=== PATIENT | female | born 1975 | race Caucasian/White ===

== ENCOUNTER 2017-05-26 22:08 | Inpatient (IN) | payer OTHER ==
[2017-05-26] MEDS ORDERED: SODIUM CHLORIDE 0.9% 1,000 ML IV STA (22:33)
[2017-05-26] MEDS ORDERED: ONDANSETRON 4 MG/2 ML VIAL IVP STA (22:33)
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
[2017-05-26 23:21] LABS: Anisocytosis Slight; Basophils # (A) 0.1 k/uL (0-0.2); Basophils % (A) 0 %; CH 22.6; CHCM 30.8; Eosinophils % (A) 0 %; HDW 3.33; HGB 10.8 gm/dL (11.4-16.0); Hypochromasia Marked; Luc # (Auto) 0.24; Luc % (Auto) 1; Lymphocytes # (A) 1.4 k/uL (1.0-4.8); Lymphocytes % (A) 7 %; MCH 22.8 pg (25.0-35.0); MCHC 30.8 g/dL (31.0-37.0); MCV 73.9 fL (80.0-100.0); Mean Platelet Volume 6.4; Microcytosis Moderate; Monocytes # (A) 0.7 k/uL (0-1.0); Monocytes % (A) 3 %; Neutrophils # (A) 19.1 k/uL (1.3-7.7); Neutrophils % (A) 89 %; RBC 4.73 m/uL (3.80-5.40); RDW 16.9 % (11.5-15.5); WBC 21.5 k/uL (3.8-10.6); WBC (Perox) 21.04
[2017-05-26 23:22] LABS: INR 1.3 (<1.2); Partial Thromboplastin Time 30.1 sec (22.0-30.0); Prothrombin Time 12.4 sec (9.0-12.0)
[2017-05-26 23:25] LABS: ALT 39 U/L (9-52); AST 18 U/L (14-36); Alkaline Phosphatase 161 U/L (38-126); Amylase 46 U/L (30-110); Anion Gap 15 mmol/L; Blood Urea Nitrogen 11 mg/dL (7-17); Calcium 9.1 mg/dL (8.4-10.2); Carbon Dioxide 25 mmol/L (22-30); Chloride 98 mmol/L (98-107); Glucose 120 mg/dL (74-99); Non-African American GFR(MDRD) >60 (>60 ml/min/1.73 sqM); Potassium 3.2 mmol/L (3.5-5.1); Sodium 138 mmol/L (137-145); Total Bilirubin 0.7 mg/dL (0.2-1.3); Total Protein 6.8 g/dL (6.3-8.2)
[2017-05-26 23:37] LABS: Creatine Kinase 33 U/L (30-135)
[2017-05-26 23:49] LABS: Creatine Kinase MB <0.2 ng/mL (0.0-2.4); Troponin I <0.012 ng/mL (0.000-0.034)
--- NOTE | 2017-05-27 00:03 | XR ---
EXAM: XR Chest, 2 Views CLINICAL HISTORY: Reason: abdominal pain TECHNIQUE: Frontal and lateral views of the chest. COMPARISON: No relevant prior studies available. FINDINGS: Lungs: Increased interstitial opacities throughout both lungs. There are multiple ill-defined focal consolidative airspace opacities identified in the mid and lower lung zones bilaterally with surrounding infiltrative pulmonary opacity. Pleural space: No evidence of pneumothorax or pleural effusion. Heart: Heart size is within normal limits. Mediastinum: Rounded retrocardiac opacity raising possibility of small hiatal hernia. Mediastinal structures are otherwise unremarkable. Bones/joints: Imaged bony thorax is unremarkable. IMPRESSION: Diffusely increased interstitial opacities with multifocal ill-defined focal consolidative and infiltrative pulmonary opacities throughout both lungs. Findings raise possibility of multifocal pneumonia. Pulmonary metastatic disease would be a differential possibility. Clinical correlation and short-term radiographic or CT follow-up recommended. Possible small hiatal hernia. [employer] 05/27/17 00:12 Verify Receipt Verified receipt with KIRSTEN Tavarez, report given to Dr. Reis on 05/27 00:11 (-04:00)
--- NOTE | 2017-05-27 00:07 | XR ---
EXAM: XR Abdomen, 1 View CLINICAL HISTORY: Reason: abdominal pain TECHNIQUE: Frontal supine view of the abdomen/pelvis. COMPARISON: No relevant prior studies available. FINDINGS: Intraperitoneal space: No evidence of pneumoperitoneum on erect chest radiograph the same date. Gastrointestinal tract: Bowel gas pattern is unremarkable. No evidence of bowel obstruction. Organs: No radiopaque renal calculi. Small calcifications left lower pelvis suggesting calcified phleboliths. Bones/joints: Unremarkable. IMPRESSION: No radiographic evidence of acute abdominal disease or bowel obstruction.
[2017-05-27 01:02] LABS: Appearance,Urine Cloudy (Clear); Bacteria,Urine Rare /hpf; Bilirubin,Urine Negative (Negative); Glucose,Urine (UA) Negative (Negative); Ketones,Urine Negative (Negative); Leukocyte Esterase,Urine Negative (Negative); Mucus,Urine Few /hpf; Nitrite,Urine Negative (Negative); PH, Urine 5.5 (5.0-8.0); Particle Count 22139; Protein,Urine 1+ (Negative); RBC,Urine 2 /hpf (0-5); Specific Gravity,Urine 1.018 (1.001-1.035); Squamous Epithelial Cell,Urine 3 /hpf (0-4); UA Billing (MACRO vs. MICRO) MICRO; Urobilinogen,Urine <2.0 mg/dL (<2.0); WBC,Urine 4 /hpf (0-5)
[2017-05-27] MEDS ORDERED: PNEUMONIA PROTOCOL UTILIZED 1 EACH MISC PO PRN (01:04)
[2017-05-27] MEDS ORDERED: LEVOFLOXACIN 750MG-D5W PMX 750 MG in DEXTROSE/WATER 1 150ML.BAG IVPB STA (01:18)
[2017-05-27] MEDS ORDERED: PANTOPRAZOLE 40 MG/10 ML VIAL IVP STA (01:19)
[2017-05-27] MEDS ORDERED: ACETAMINOPHEN TAB 325 MG TAB PO PRN (01:52)
[2017-05-27] MEDS ORDERED: IPRATROPIUM-ALBUTEROL 3 ML NEB INHALATION PRN (02:45)
[2017-05-27] MEDS ORDERED: ONDANSETRON 4 MG/2 ML VIAL IVP PRN (02:46)
[2017-05-27] MEDS ORDERED: HYDROcodone/APAP 5-325MG 1 EACH TAB PO PRN (03:30)
[2017-05-27] MEDS ORDERED: HYDROmorphone 1 MG/ML 1 ML SYRINGE IVP PRN (03:31)
[2017-05-27] MEDS: GABAPENTIN 400 MG CAP PO SCH ×5 (03:47→22:01)
[2017-05-27] MEDS: SODIUM CHLORIDE 0.9% 1,000 ML IV SCH (03:47)
[2017-05-27] MEDS: IPRATROPIUM-ALBUTEROL 3 ML NEB INHALATION SCH ×4 (07:35→18:42)
[2017-05-27] MEDS ORDERED: ALPRAZolam 0.5 MG TAB PO SCH (09:00)
[2017-05-27] MEDS ORDERED: ALPRAZolam 0.5 MG TAB PO PRN (11:59)
[2017-05-27] MEDS ORDERED: traMADol 50 MG TAB PO PRN (12:12)
[2017-05-27] MEDS: PANTOPRAZOLE 40 MG/10 ML VIAL IVP SCH (12:55)
[2017-05-27] MEDS ORDERED: traMADol 50 MG TAB PO SCH (13:00)
[2017-05-27 13:14] LABS: Anisocytosis Slight; Basophils % (A) 0 %; CH 22.6; CHCM 30.2; Eosinophils # (A) 0.1 k/uL (0-0.7); Eosinophils % (A) 0 %; HCT 29.5 % (34.0-46.0); HDW 3.32; Hypochromasia Marked; Luc # (Auto) 0.26; Luc % (Auto) 1; Lymphocytes # (A) 1.1 k/uL (1.0-4.8); Lymphocytes % (A) 5 %; MCH 22.9 pg (25.0-35.0); MCHC 30.3 g/dL (31.0-37.0); MCV 75.5 fL (80.0-100.0); Mean Platelet Volume 6.5; Microcytosis Slight; Monocytes # (A) 0.5 k/uL (0-1.0); Monocytes % (A) 3 %; Neutrophils # (A) 18.6 k/uL (1.3-7.7); Neutrophils % (A) 90 %; RBC 3.91 m/uL (3.80-5.40); RDW 16.8 % (11.5-15.5); WBC 20.6 k/uL (3.8-10.6); WBC (Perox) 20.63
[2017-05-27 13:15] LABS: HGB 8.9 gm/dL (11.4-16.0)
[2017-05-27 13:28] LABS: ALT 45 U/L (9-52); AST 22 U/L (14-36); Alkaline Phosphatase 142 U/L (38-126); Anion Gap 11 mmol/L; Blood Urea Nitrogen 9 mg/dL (7-17); Calcium 8.7 mg/dL (8.4-10.2); Carbon Dioxide 26 mmol/L (22-30); Chloride 100 mmol/L (98-107); Glucose 93 mg/dL (74-99); Non-African American GFR(MDRD) >60 (>60 ml/min/1.73 sqM); Potassium 3.1 mmol/L (3.5-5.1); Sodium 137 mmol/L (137-145); Total Bilirubin 0.4 mg/dL (0.2-1.3)
[2017-05-27 14:00] LABS: Hepatitis B Surface Ag Index 0.05
[2017-05-27 14:06] LABS: Hepatitis B Core IgM Index 0.01
[2017-05-27 14:18] LABS: Hepatitis C Virus IgG Ab Negative (Negative); Hepatitis C Virus IgG Index 0.19
[2017-05-27] MEDS ORDERED: Potassium Replacement Protocol 1 EACH MISC MISCELLANE PRN (14:28)
--- NOTE | 2017-05-27 14:53 | CONS ---
DATE OF SERVICE: 05/27/2017 REQUESTING PHYSICIAN: Dr. Campos. REASON FOR CONSULTATION: Nausea, vomiting, diarrhea and questionable melena. HISTORY OF PRESENT ILLNESS: A 42-year-old pleasant lady who was admitted to the hospital when she presented to the Emergency Room last night with acute onset of abdominal pain for the last 2 days' duration associated with nausea, vomiting and diarrhea. She threw up at least 10 times and there was questionable dark-colored emesis. She continued to have progressive diarrhea with bowel movements anywhere from 10 to 15 a day which improved to water in consistency with black-colored stools. She denies taking any definitive prep due to small lipping. Continued to progress worse, the nausea, vomiting also got worse and at the same time she started having some shortness of breath and coughing for the last 2 weeks. Came into the Emergency Room and was admitted to the hospital for further evaluation. This morning, she states that she continues to have both the nausea but no emesis. She had about 3 dark green- colored stools since being in the hospital. She has diffuse abdominal pain, mostly in the lower abdomen. No fever, chills or night sweats. Never had similar symptoms in the past. No recent antibiotic use. No recent travel history. Her past medical history is significant for history of asthma, COPD, history of DVT in the past, GERD, osteoarthritis, migraine, kidney stones. PAST SURGICAL HISTORY: , cholecystectomy, hysterectomy. Medications at home include Spiriva, Xanax, Prozac, Lasix, Neurontin, Protonix, Ultram. Allergies to AUGMENTIN, IV DYE, TORADOL, COMPAZINE. SOCIAL HISTORY: Chronic smoker, no alcohol use. FAMILY HISTORY: Mother had some non-Hodgkin's lymphoma and father had coronary artery disease and renal disease. REVIEW OF SYSTEMS: CARDIOPULMONARY: No chest pain. She does complain of shortness of breath but no chest pain. NEUROLOGY: Unremarkable. PSYCHIATRY: History of anxiety, depression. ENT: Unremarkable. Vision unremarkable. CONSTITUTIONAL: No recent weight loss, no palpitations, night sweats. GI: As mentioned above. MUSCULOSKELETAL: Chronic back pain. HEMATOLOGY: Unremarkable. ENDOCRINE: Unremarkable. On physical examination, she appears comfortable, in no apparent distress. Vital signs are stable. Blood pressure is 93/57, pulse 104, temperature 97 degrees. HEENT examination unremarkable. Conjunctivae are pink, sclerae nonicteric. Oral cavity no lesions. NECK: No JVD or lymph node enlargement. Chest was clear to auscultation. HEART: Regular rate and rhythm. ABDOMEN: Soft, diffusely tender, but was nondistended. Bowel sounds are positive, no organomegaly. EXTREMITIES: No pedal edema. SKIN: No rashes. NEURO: She is alert and oriented x3. No focal deficits. She did have a chest x-ray done in the emergency room yesterday that showed diffuse increase interstitial opacities with multifocal ill-defined focal consolidative infiltrative pulmonary opacities throughout both the lungs. Possibility of multifocal pneumonia was suggested by the radiologist. Labs done at the time of admission to the hospital: WBC is 21.5, hemoglobin 10.8, platelets are normal. PT 12.4, INR 1.3, AST, ALT, T-bili and alk phos are within normal limits. Amylase and lipase are normal. C-diff toxin was negative. Stool for occult blood was positive. IMPRESSION: 1. This is as patient who presented to the hospital with acute onset of nausea , vomiting, diarrhea with some black-colored stool and questionable coffee- ground emesis for the last 2 days' duration. Symptoms are acute onset and most likely we are dealing with infectious diarrhea at the present time. Since being in the hospital though emesis has resolved but she continues to have persistent diarrhea and though nursing staff who witness the stool said it was dark green in color. 2. Bilateral pneumonia/leukocytosis, presently ( ) on antibiotics. RECOMMENDATIONS: 1. Will obtain stool studies. 2. Start her on clear liquid diet. 3. Repeat CBC in the morning. 4. At this time, I have no plans for any endoscopic intervention unless she has active ongoing bleeding. The plan was discussed with the patient, she is agreeable to it. She will be continued on IV Protonix as well as antiemetics and will follow her closely during the hospital setting given this consultation. PARTHA
[2017-05-27] MEDS: POTASSIUM CHLORIDE ER 20 MEQ TAB.ER PO SCH ×2 (15:32→17:57)
--- NOTE | 2017-05-27 16:05 | P.HPIM ---
History of Present Illness 42-year-old female came in with complaints of shortness of breath and epigastric abdominal pain, along with diarrhea multiple episodes a day although has creatinine is not bad. And patient has multiple bowel movements. Patient 2 days ago has couple episodes of blood in the stools and questionable history of hematemesis. Gastric body evaluate the patient patient is on Protonix at this point of time patient is found to have diffuse infiltrate in bilateral chest x-ray bilaterally. Patient does have leukocytosis denied any fever did complain of chills. Patient does have couple areas in the right middle and lower lobe of possibility for consolidation. Because of which I'm consulted pulmonary. Clostridium difficile testing was negative. And gastroneurology recommended stool studies for possibility of infectious diarrhea. Patient is on IV fluids and discontinued Lasix at this point of time. And patient does not have any elevated JVD. I did not do a hepatitis panel which is negative I did order HIV testing as well which is still pending. From obtaining urinary Legionella antigen and mycoplasma IgM antibody testing for possibility of atypical pneumonia and patient was started on levofloxacin. He was comparing of cough without any significant sputum production patient has epigastric abdominal burning sensation her lipase is negative patient may have gastritis or peptic ulcer disease as well along with this atypical pneumonia. Review of Systems REVIEW OF SYSTEMS: CONSTITUTIONAL: No fever, no malaise, no fatigue. HEENT: No recent visual problems or hearing problems. Denied any sore throat. CARDIOVASCULAR: No chest pain, orthopnea, PND, no palpitations, no syncope. PULMONARY: As mentioned in HPI GASTROINTESTINAL: As mentioned in HPI NEUROLOGICAL: No headaches, no weakness, no numbness. HEMATOLOGICAL: Denies any bleeding or petechiae. GENITOURINARY: Denies any burning micturition, frequency, or urgency. MUSCULOSKELETAL/RHEUMATOLOGICAL: Denies any joint pain, swelling, or any muscle pain. ENDOCRINE: Denies any polyuria or polydipsia. The rest of the 14-point review of systems is negative. Past Medical History Past Medical History: Asthma, COPD, Deep Vein Thrombosis (DVT), GERD/Reflux, GI Bleed, Osteoarthritis (OA), Pneumonia, Seizure Disorder, Syncope Additional Past Medical History / Comment(s): TACHYCARDIA, MURMUR, TIA(WHEN ), MIGRAINE, PSORIASES, DIVERTICULITIS, pancreatitis, 2009 BIT BY BROWN RECLUSE ENDED UP WITH A WOUND THAT WAS POSITIVE FOR MRSA), KIDNEY STONES. BORN WITH SMALL ESOPHAGUS History of Any Multi-Drug Resistant Organisms: MRSA Date of last positivie culture/infection: 2008 MDRO Source:: WOUND Past Surgical History: Section, Cholecystectomy, Tubal Ligation Additional Past Surgical History / Comment(s): X3 C- SECTIONS Additional Past Anesthesia/Blood Transfusion Reaction / Comment(s): TAKES EXTRA TO KNOCK HER OUT. Past Psychological History: Anxiety, Bipolar, Depression, Panic Disorder, PTSD Smoking Status: Current every day smoker Past Alcohol Use History: None Reported Additional Past Alcohol Use History / Comment(s): STARTED SMOKING AT 15 SMOKES 1 -2 PPD Past Drug Use History: None Reported - Past Family History Father Family Medical History: Coronary Artery Disease (CAD), Renal Disease Additional Family Medical History / Comment(s): QUAD CABG Mother Family Medical History: Cancer Additional Family Medical History / Comment(s): NON HODGKINS LYMPHOMA Medications and Allergies Home Medications Medication Instructions Recorded Confirmed Type Tiotropium [place] [Spiriva] 1 cap INHALATION RT-DAILY 04/09/15 05/26/17 History ALPRAZolam [Xanax] 1 mg PO TID 05/26/17 05/26/17 History FLUoxetine HCL [PROzac] 60 mg PO HS 05/26/17 05/26/17 History Furosemide [Lasix] 20 mg PO BID 05/26/17 05/26/17 History Gabapentin [Neurontin] 800 mg PO QID 05/26/17 05/26/17 History Pantoprazole Sodium [Protonix] 40 mg PO BID 05/26/17 05/26/17 History hydrOXYzine PAMOATE 50 mg PO QID 05/26/17 05/26/17 History predniSONE 10 mg PO DAILY 05/26/17 05/26/17 History traMADol HCl [Ultram] 50 mg PO BID 05/26/17 05/26/17 History Allergies Allergy/AdvReac Type Severity Reaction Status Date / Time amoxicillin trihydrate Allergy Severe Anaphylaxis Verified 05/26/17 22:17 [From Augmentin] Iodinated Contrast- Oral and Allergy Severe Anaphylaxis Verified 05/26/17 22:17 IV Dye [Iodinated Contrast Media - IV Dye] ketorolac tromethamine Allergy Severe Rash/Hives Verified 05/26/17 22:17 [From Toradol] potassium clavulanate Allergy Severe Anaphylaxis Verified 05/26/17 22:17 [From Augmentin] prochlorperazine edisylate Allergy Severe Rash/Hives Verified 05/26/17 22:17 [From Compazine] prochlorperazine maleate Allergy Severe Rash/Hives Verified 05/26/17 22:17 [From Compazine] venom-honey bee Allergy Severe Anaphylaxis Verified 05/26/17 22:17 [bee venom (honey bee)] contrast Allergy Anaphylaxis Uncoded 05/26/17 22:17 Physical Exam Vitals: Vital Signs Temp Pulse Pulse Resp BP BP Pulse Ox 05/27/17 15:47 100 05/27/17 15:43 94 L 05/27/17 15:40 100 05/27/17 11:58 101 H 05/27/17 11:50 105 H 05/27/17 11:18 92 L 05/27/17 08:32 97 102/61 05/27/17 08:23 93/57 05/27/17 08:07 104 H 05/27/17 07:35 104 H 05/27/17 07:00 97.9 F 95 16 79/47 90 L 05/27/17 02:35 98.4 F 106 H 16 102/54 94 L 05/27/17 01:54 101.3 F H 102 H 18 110/82 96 05/26/17 23:55 99 18 103/57 97 05/26/17 22:13 98.1 F 105 H 20 106/56 93 L Intake and Output 05/27/17 05/27/17 05/27/17 06:59 14:59 22:59 Intake Total 375 1100 Balance 375 1100 Intake: IV 375 1000 Sodium Chloride 0.9% 1, 375 1000 000 ml @ 125 mls/hr IV . Q8H [facility] Rx#:[id number] Intake, IV Titration 100 Amount Levofloxacin 500Mg-D5w 100 Pmx 500 mg In Dextrose/ Water 1 100ml.bag @ 100 mls/hr IVPB Q24H [facility]IE Rx#: [id number] Other: Voiding Method Bedside Commode Bedside Commode # Voids 3 # Bowel Movements 3 PHYSICAL EXAMINATION: GENERAL: The patient is alert and oriented x3, not in any acute distress. Well developed, well nourished. HEENT: Pupils are round and equally reacting to light. EOMI. No scleral icterus. No conjunctival pallor. Normocephalic, atraumatic. No pharyngeal erythema. No thyromegaly. CARDIOVASCULAR: S1 and S2 present. No murmurs, rubs, or gallops. PULMONARY: Chest is clear to auscultation, no wheezing or crackles. ABDOMEN: Soft, nontender, nondistended, normoactive bowel sounds. No palpable organomegaly. MUSCULOSKELETAL: No joint swelling or deformity. EXTREMITIES: No cyanosis, clubbing, or pedal edema. NEUROLOGICAL: Gross neurological examination did not reveal any focal deficits. SKIN: No rashes. Results CBC & Chem 7: 05/27/17 12:46 05/27/17 12:46 Labs: Abnormal Lab Results - Last 24 Hours (Table) 05/26/17 05/26/17 05/26/17 Range/Units 23:00 23:00 23:00 WBC 21.5 H (3.8-10.6) k/uL Hgb 10.8 L (11.4-16.0) gm/dL Hct (34.0-46.0) % MCV 73.9 L (80.0-100.0) fL MCH 22.8 L (25.0-35.0) pg MCHC 30.8 L (31.0-37.0) g/dL RDW 16.9 H (11.5-15.5) % Neutrophils # 19.1 H (1.3-7.7) k/uL PT 12.4 H (9.0-12.0) sec INR 1.3 H (<1.2) APTT 30.1 H (22.0-30.0) sec Potassium 3.2 L (3.5-5.1) mmol/L Glucose 120 H (74-99) mg/dL Alkaline Phosphatase 161 H (38-126) U/L Total Protein (6.3-8.2) g/dL Albumin (3.5-5.0) g/dL Urine Appearance (Clear) Urine Protein (Negative) Urine Blood (Negative) Urine Bacteria (None) /hpf Hyaline Casts (0-2) /lpf Urine Mucus (None) /hpf Stool Occult Blood (Negative) U Benzodiazepines Scrn (NotDetected) 05/27/17 05/27/17 05/27/17 Range/Units 00:30 00:56 00:56 WBC (3.8-10.6) k/uL Hgb (11.4-16.0) gm/dL Hct (34.0-46.0) % MCV (80.0-100.0) fL MCH (25.0-35.0) pg MCHC (31.0-37.0) g/dL RDW (11.5-15.5) % Neutrophils # (1.3-7.7) k/uL PT (9.0-12.0) sec INR (<1.2) APTT (22.0-30.0) sec Potassium (3.5-5.1) mmol/L Glucose (74-99) mg/dL Alkaline Phosphatase (38-126) U/L Total Protein (6.3-8.2) g/dL Albumin (3.5-5.0) g/dL Urine Appearance Cloudy H (Clear) Urine Protein 1+ H (Negative) Urine Blood Small H (Negative) Urine Bacteria Rare H (None) /hpf Hyaline Casts 46 H (0-2) /lpf Urine Mucus Few H (None) /hpf Stool Occult Blood Positive H (Negative) U Benzodiazepines Scrn Detected H (NotDetected) 05/27/17 05/27/17 Range/Units 12:46 12:46 WBC 20.6 H (3.8-10.6) k/uL Hgb 8.9 L D (11.4-16.0) gm/dL Hct 29.5 L (34.0-46.0) % MCV 75.5 L (80.0-100.0) fL MCH 22.9 L (25.0-35.0) pg MCHC 30.3 L (31.0-37.0) g/dL RDW 16.8 H (11.5-15.5) % Neutrophils # 18.6 H (1.3-7.7) k/uL PT (9.0-12.0) sec INR (<1.2) APTT (22.0-30.0) sec Potassium 3.1 L (3.5-5.1) mmol/L Glucose (74-99) mg/dL Alkaline Phosphatase 142 H (38-126) U/L Total Protein 6.0 L (6.3-8.2) g/dL Albumin 3.1 L (3.5-5.0) g/dL Urine Appearance (Clear) Urine Protein (Negative) Urine Blood (Negative) Urine Bacteria (None) /hpf Hyaline Casts (0-2) /lpf Urine Mucus (None) /hpf Stool Occult Blood (Negative) U Benzodiazepines Scrn (NotDetected) Thrombosis Risk Factor Assmnt - Choose All That Apply Any of the Below Risk Factors Present?: Yes Each Factor Represents 1 point: Abnormal pulmonary function (COPD), Age 41-60 years, Obesity (BMI >25), Varicose veins Other Risk Factors: Yes Each Risk Factor Represents 3 Points: History of DVT/PE Other congenital or acquired thrombophilia - If yes, enter type in comment: No Thrombosis Risk Factor Assessment Total Risk Factor Score: 7 Thrombosis Risk Factor Assessment Level: High Risk Assessment and Plan Plan: #1 cough along with diffuse infiltrate on the chest x-ray: Possibly of atypical pneumonia for which patient was started on levofloxacin and above-mentioned testing for atypical pneumonia as mentioned above. Patient does have leukocytosis possibly because of atypical pneumonia. #2 leukocytosis: Probably because of atypical pneumonia. #3 diarrhea: Rule out C. diff. Can be because of infection as mentioned above. #4 possibility of upper GI bleed with peptic ulcer disease: Patient is on Protonix for that. Monitor hemoglobin. And monitor clinically for any GI bleed. #5 COPD: Does not appear to be in acute exacerbation at this point of time. #7 history of DVT patient is not on any anti-correlation at this point of time. #8 seizure disorder without any recent seizures patient will be resumed on her home medications for that. #9 to Edil abuse: Extensive counseling was provided #10 bipolar disorder: Continue her home medications.
--- NOTE | 2017-05-27 20:12 | CONS ---
A 42-year old female who presented to the emergency department with complaints of chest pain, shortness of breath, abdominal pain, nausea and vomiting and diarrhea. She apparently has not been feeling well for the last couple of weeks. She has had cough. Over the last four days, the coughing has gotten worse and she was coughing up some green sputum. She also had fever and chills and she had a T-max of 101.4. The patient also states that she developed abdominal pain, vomiting and diarrhea, and thought maybe she had recurrent pancreatitis as she has had that once before. She also apparently states that she had pneumonia in the past and was concerned about that. She did have some vomiting which has been dark and coffeeground in color. Today she was sitting in bed. She had her top off. She seemed to give a reasonably good history, although she was focusing on why she was not getting enough pain medication. No chest pain. Other than that, doing reasonably well. Dr. Campos saw us walking the hallway and asked us to see her in consultation. Chest x-ray shows patchy infiltrates bilaterally which could be consistent with multifocal pneumonia. Her home medications include: 1. Spiriva. 2. Xanax. 3. Prozac. 4. Lasix. 5. Neurontin. 6. Protonix. 7. Prednisone. 8. Vistaril. 9. Tramadol. ALLERGIES: MULTIPLE AND INCLUDE AUGMENTIN, IVP DYE, TORADOL, COMPAZINE, HONEY BEE VENOM AND CONTRAST MATERIAL. Medical history includes asthma/COPD. DVT, GERD, GI bleed, osteoarthritis, pneumonia, seizure disorder, syncope, pancreatitis, tachycardia, TIA, psoriasis , diverticular disease and spider bite by a brown ( ) spider. She also has apparently developed an infection from that spider bite which was secondary to MRSA. She also had a history of kidney stones. Surgical history includes , cholecystectomy, hysterectomy. Social history is positive for ongoing tobacco use. Denies any alcohol. No illicit drug use. Family history is positive for non-Hodgkins lymphoma, cancer, bypass grafting and kidney disease. REVIEW OF SYSTEMS: CONSTITUTIONAL: Negative. NEUROLOGICAL: Negative. HEENT: Negative. CARDIOVASCULAR: Negative. PULMONARY: Shortness of breath, cough. GI/: Abdominal pain, nausea and vomiting, and diarrhea. HEMATOLOGICAL: Negative. RHEUMATOLOGICAL: Negative. ENDOCRINOLOGICAL: Negative. DERMATOLOGICAL: All negative. Currently, her temperature is 97.9, heart rate is 95. Respiratory rate is 16. Blood pressure 90/60. Room air saturation is 90%. 2 L saturation 94%. Appears in no acute distress. HEENT: Grossly unremarkable. Mucous membranes are moist. No oral lesions. Neck supple. Full range of motion. No adenopathy. No thyromegaly. Neck veins are flat. Cardiovascular examination reveals regular rate and rhythm. Heart rate 90. S1, S2 normal. No murmur. Lungs reveal coarse rhonchi. Mostly right sided in my opinion. No crackles. No wheezes. She does have a wet congested sounded cough. Abdomen soft. Bowel sounds heard. Skin without rash. Extremities intact. Labs are reviewed. White count 21.5, hemoglobin 10.8, hematocrit 35, platelet count 314,000. PT/INR 12.4 and 1.3. PTT 30.1. Sodium 138. Potassium 3.2. Chloride 98, CO2 25, BUN and creatinine 11 and 0.9. The rest of the labs look okay. Urine was cloudy. 1+ protein. Small blood. Rare bacteria, hyaline casts 46. Stool occult blood was positive. Benzodiazepines were positive in her drug screen. Her C. dif studies were negative. ASSESSMENT: 1. Multifocal bilateral pneumonia. 2. Asthma/chronic obstructive pulmonary disease. 3. Deep venous thrombosis. 4. Gastroesophageal reflux disease. 5. History of gastrointestinal bleed. 6. Previous history of pancreatitis. 7. Prior history of pneumonia. 8. Seizure disorder. 9. History of syncope. 10. History of migraine cephalgia. 11. History of cirrhosis. 12. Diverticular disease. 13. Prior MRSA infection secondary to a brown recluse spider bite. PLAN: The patients medications were reviewed. We will make sure she is on updrafts and appropriate antibiotics. Additional recommendations and suggestions forthcoming. Clinically she looks well and her clinical status looks much better than what her x-ray suggests. Will follow closely. She should be ( ) sputum. She should have urinary antigen test for legionella. Prognosis guarded. MTDD
[2017-05-27] MEDS ORDERED: FLUoxetine HCL 20 MG CAP PO SCH (21:00)
[2017-05-27] MEDS: HYDROcodone/APAP 5-325MG 1 EACH TAB PO PRN (22:00)
[2017-05-28] MEDS ORDERED: LEVOFLOXACIN 500MG-D5W PMX 500 MG in DEXTROSE/WATER 1 100ML.BAG IVPB SCH
--- NOTE | 2017-05-28 07:15 | XR ---
EXAMINATION TYPE: XR chest 2V DATE OF EXAM: 05/28/2017 HISTORY: pneumonia. REFERENCE: Previous study dated 05/26/2017. FINDINGS: There continues to be patchy bilateral airspace disease. There is a small right effusion. H eart size is upper limits of normal. There is vascular congestion. IMPRESSION: 1. CONTINUING PATCHY AIRSPACE DISEASE. OVERALL AERATION IS IMPROVED SLIGHTLY. 2. WORSENING RIGHT-SIDED EFFUSION. 3. VASCULAR CONGESTION.
[2017-05-28] MEDS: IPRATROPIUM-ALBUTEROL 3 ML NEB INHALATION SCH ×3 (07:17→15:59)
[2017-05-28] MEDS: SODIUM CHLORIDE 0.9% 1,000 ML IV SCH (07:34)
[2017-05-28] MEDS: PANTOPRAZOLE 40 MG/10 ML VIAL IVP SCH (09:13)
[2017-05-28] MEDS: GABAPENTIN 400 MG CAP PO SCH ×3 (09:15→18:31)
[2017-05-28] MEDS: HYDROcodone/APAP 5-325MG 1 EACH TAB PO PRN (09:16)
[2017-05-28 11:32] LABS: Anisocytosis Slight; Basophils % (A) 0 %; CH 22.2; CHCM 29.4; Eosinophils # (A) 0.2 k/uL (0-0.7); Eosinophils % (A) 1 %; HCT 28.2 % (34.0-46.0); HDW 3.34; HGB 8.3 gm/dL (11.4-16.0); Hypochromasia Marked; Luc # (Auto) 0.28; Luc % (Auto) 2; Lymphocytes # (A) 1.3 k/uL (1.0-4.8); Lymphocytes % (A) 11 %; MCH 22.5 pg (25.0-35.0); MCHC 29.5 g/dL (31.0-37.0); MCV 76.3 fL (80.0-100.0); Mean Platelet Volume 7.4; Microcytosis Slight; Monocytes # (A) 0.4 k/uL (0-1.0); Monocytes % (A) 3 %; Neutrophils # (A) 10.3 k/uL (1.3-7.7); Neutrophils % (A) 82 %; RDW 16.9 % (11.5-15.5); WBC 12.5 k/uL (3.8-10.6)
[2017-05-28 12:08] LABS: ALT 42 U/L (9-52); AST 38 U/L (14-36); Alkaline Phosphatase 123 U/L (38-126); Anion Gap 9 mmol/L; Blood Urea Nitrogen 7 mg/dL (7-17); Calcium 8.1 mg/dL (8.4-10.2); Carbon Dioxide 24 mmol/L (22-30); Chloride 106 mmol/L (98-107); Glucose 93 mg/dL (74-99); Non-African American GFR(MDRD) >60 (>60 ml/min/1.73 sqM); Potassium 3.5 mmol/L (3.5-5.1); Sodium 139 mmol/L (137-145); Total Bilirubin 0.3 mg/dL (0.2-1.3); Total Protein 5.7 g/dL (6.3-8.2)
--- NOTE | 2017-05-28 12:13 | P.PN ---
Subjective Principal diagnosis: 42-year-old female admitted for pneumonia multifocal, patient chest x-ray showing significant infiltrate looks little bit worse compared to yesterday. Probably after IV hydration we're able to see the consolidation pretty well at this time. Patient will be continued on levofloxacin. Patient leukocytosis did improve. Patient is still having diarrhea and still waiting for repeat basic metabolic profile. Any electrolyte imbalances will be corrected. Patient is still requesting narcotics for pain. Counseling regarding opiate overuse was provided. Patient says she has history of seizure disorder which was documented in the past because of which tramadol is being discontinued will continue with [place]. Patient's IV fluids were discontinued with concern of a competent of pulmonary edema. Although patient does clinically does not have any CHF. Improved leukocytosis. Continues to have diarrhea all the stool workup including C. diff was negative. Patient will be started on Questran if needed will start her on symptomatically treatment for diarrhea. Patient had low-grade fever yesterday. Patient denied any dysuria, nausea, vomiting. still has diarrhea as mentioned above no new focal deficits Objective - Vital Signs Vital signs: Vital Signs Temp 98.1 F 05/28/17 07:00 Pulse 98 05/28/17 12:03 Resp 16 05/28/17 08:00 BP 100/64 05/28/17 07:00 Pulse Ox 94 L 05/28/17 07:00 Intake & Output 05/27/17 05/28/17 05/28/17 18:59 06:59 18:59 Intake Total 1100 625 Balance 1100 625 Intake: IV 1000 625 Sodium Chloride 0.9% 1, 1000 625 000 ml @ 125 mls/hr IV . Q8H [facility] Rx#:[id number] Intake, IV Titration 100 Amount Levofloxacin 500Mg-D5w 100 Pmx 500 mg In Dextrose/ Water 1 100ml.bag @ 100 mls/hr IVPB Q24H [facility]IE Rx#: [id number] Other: Voiding Method Bedside Commode Bedside Commode Bedside Commode # Voids 1 - Exam GENERAL: The patient is alert and oriented x3, not in any acute distress. Well developed, well nourished. HEENT: Pupils are round and equally reacting to light. EOMI. No scleral icterus. No conjunctival pallor. Normocephalic, atraumatic. No pharyngeal erythema. No thyromegaly. CARDIOVASCULAR: S1 and S2 present. No murmurs, rubs, or gallops. PULMONARY: Chest is clear to auscultation, no wheezing or crackles. ABDOMEN: Soft, nontender, nondistended, normoactive bowel sounds. No palpable organomegaly. MUSCULOSKELETAL: No joint swelling or deformity. EXTREMITIES: No cyanosis, clubbing, or pedal edema. NEUROLOGICAL: Gross neurological examination did not reveal any focal deficits. SKIN: No rashes. - Labs CBC & Chem 7: 05/28/17 11:21 05/27/17 12:46 Labs: Abnormal Lab Results - Last 24 Hours (Table) 05/27/17 05/27/17 05/28/17 Range/Units 12:46 12:46 11:21 WBC 20.6 H 12.5 H (3.8-10.6) k/uL RBC 3.70 L (3.80-5.40) m/uL Hgb 8.9 L D 8.3 L (11.4-16.0) gm/dL Hct 29.5 L 28.2 L (34.0-46.0) % MCV 75.5 L 76.3 L (80.0-100.0) fL MCH 22.9 L 22.5 L (25.0-35.0) pg MCHC 30.3 L 29.5 L (31.0-37.0) g/dL RDW 16.8 H 16.9 H (11.5-15.5) % Neutrophils # 18.6 H 10.3 H (1.3-7.7) k/uL Potassium 3.1 L (3.5-5.1) mmol/L Alkaline Phosphatase 142 H (38-126) U/L Total Protein 6.0 L (6.3-8.2) g/dL Albumin 3.1 L (3.5-5.0) g/dL Microbiology - Last 24 Hours (Table) 05/26/17 23:00 Blood Culture - Preliminary Blood No Growth after 24 hours 05/26/17 23:00 Blood Culture - Preliminary Blood No Growth after 24 hours 05/27/17 11:30 Stool for WBCs - Final Stool 05/27/17 11:30 Stool Culture - Preliminary Stool Assessment and Plan Plan: #1 sepsis secondary to multifocal pneumonia: Probably community-acquired pneumococcal pneumonia. Since leukocytosis improving will continue with levofloxacin. #2 leukocytosis: Probably because of pneumonia. #3 diarrhea: Probably due to sepsis itself #4 possibility of upper GI bleed with peptic ulcer disease: Patient is on Protonix for that. No more GI bleed here continue with Protonix. #5 COPD: Does not appear to be in acute exacerbation at this point of time. Continue with inhalational steroids and albuterol. #7 history of DVT patient is not on any anti-coagulation at this point of time. #8 seizure disorder without any recent seizures patient will be resumed on her home medications for that. Tramadol will be discontinued #9 to Edil abuse: Extensive counseling was provided #10 bipolar disorder: Continue her home medications.
[2017-05-28] MEDS: CHOLESTYRAMINE (WITH SUGAR) 4 GM PACKET PO SCH ×2 (13:42→18:31)
[2017-05-28 16:09] VITALS: BP 98/54; PULSE 86; RESP 16; TEMP 97
[2017-05-28] MEDS ORDERED: traMADol 50 MG TAB PO PRN (18:29)
[2017-05-28] MEDS ORDERED: MONTELUKAST 10 MG TAB PO SCH (21:00)
--- NOTE | 2017-05-29 07:10 | PN ---
The patient is a 42 -year-old white female admitted to the hospital with abdominal pain, nausea and vomiting, and diarrhea of two days duration. She was also diagnosed with pneumonia, and on broad spectrum antibiotics. This morning she states she still has severe diarrhea. She went 28 times in the last 24 hours. She denies any blood in the stool. She does have nausea. On a clear liquid diet, tolerating well and requesting for more food. On physical examination, she appears comfortable, no apparent distress. Vital signs are stable. Blood pressure is 96/62. Pulse rate 99. T-max is 100.2. HEENT: Unremarkable. Conjunctivae pink. Sclerae anicteric. Oral cavity no lesions. Neck no JVD or lymph node enlargement. Chest is clear to auscultation. Heart is regular rate and rhythm. Abdomen is soft. Bowel sounds positive. There was tenderness in the lower abdomen, mostly in the right lower quadrant and left lower quadrant. Extremities no pedal edema. Skin no rashes. Neurological: Alert and oriented times three. No focal deficits. Labs: From today, WBC is down to 20.6, hemoglobin 8.9, MCV 75, platelets 271. Basic metabolic panel is within normal limits. Stool for C. dif is negative. Stool cultures are still pending. IMPRESSION: 1. This is a lady who presents with acute onset of abdominal pain associated with nausea and vomiting, diarrhea for the last three days duration and most likely infectious in etiology. Stool studies so far are still pending. C. dif toxin has been reported as negative. She continues to have persistent diarrhea with 20 bowel movements in the last 24 hours according to the patient. Most likely we are dealing with infectious etiology. 2. Microcytic anemia. 3. Bilateral pneumonia for which she is on broad spectrum antibiotics. RECOMMENDATIONS: 1. As per the patients request, we will advance to a soft diet. 2. Await further stool studies. 3. Continue symptomatic supportive care. 4. Broad spectrum antibiotics for bilateral pneumonia and we will follow. 5. At this time, no plans for any endoscopic intervention for the diarrhea as it most likely is infectious in etiology. We will follow her closely during her hospital stay. Thank you for this consultation. PARTHA
[2017-05-29] MEDS ORDERED: TIOTROPIUM 18 MCG/PUFF INHALER INHALATION SCH (08:00)
--- NOTE | 2017-05-29 10:56 | P.DS ---
Providers Date of admission: 05/27/17 01:06 Attending physician: Mary Ellen Campos Consults: 05/27/17 01:04 Consult Physician Stat Consulting Provider: Sayra Yeager Consult Reason/Comments: GI Bleed; Abdominal Pain Do you want consulting provider notified?: Yes 05/27/17 12:01 Consult Physician Routine Consulting Provider: Quirino Hernandez Reason/Comments: pneumonia Do you want consulting provider notified?: Already Contacted Primary care physician: Physician Nonstaff Hospital Course: Patient left AMA Patient Condition at Discharge: Fair Plan - Discharge Summary New Discharge Prescriptions: No Action Tiotropium [place] [Spiriva] 1 cap INHALATION RT-DAILY hydrOXYzine PAMOATE 50 mg PO QID predniSONE 10 mg PO DAILY Pantoprazole Sodium [Protonix] 40 mg PO BID Gabapentin [Neurontin] 800 mg PO QID Furosemide [Lasix] 20 mg PO BID FLUoxetine HCL [PROzac] 60 mg PO HS ALPRAZolam [Xanax] 1 mg PO TID traMADol HCl [Ultram] 50 mg PO BID Montelukast Sodium [Singulair] 10 mg PO HS Discharge Medication List Tiotropium [place] [Spiriva] 1 cap INHALATION RT-DAILY 04/09/15 [History] ALPRAZolam [Xanax] 1 mg PO TID 05/26/17 [History] FLUoxetine HCL [PROzac] 60 mg PO HS 05/26/17 [History] Furosemide [Lasix] 20 mg PO BID 05/26/17 [History] Gabapentin [Neurontin] 800 mg PO QID 05/26/17 [History] Pantoprazole Sodium [Protonix] 40 mg PO BID 05/26/17 [History] hydrOXYzine PAMOATE 50 mg PO QID 05/26/17 [History] predniSONE 10 mg PO DAILY 05/26/17 [History] traMADol HCl [Ultram] 50 mg PO BID 05/26/17 [History] Montelukast Sodium [Singulair] 10 mg PO HS 05/28/17 [History] Follow up Appointment(s)/Referral(s): Nonstaff,Physician [Primary Care Provider] - 1-2 days Discharge Disposition: Left Against Medical Advice
--- NOTE | 2017-05-29 11:30 | PN ---
This is a 42-year-old female who presented to the emergency department with complaints of shortness of breath and chest pain. She ended up having multifocal bilateral pneumonia. She does have a history of underlying asthma/ chronic obstructive pulmonary disease, DVT, gastroesophageal reflux disease, gastrointestinal bleed, pancreatitis, previous episode of pneumonia, seizure disorder, syncope, migraine cephalgia, cirrhosis, diverticular disease and prior MRSA infection secondary to a Brown Recluse spider bite. Anyway, the patient is doing a bit better today. Her primary complaints right now include mostly diarrhea. Her respiratory complaints really are minimal compared to her GI issues. She is coughing. She is producing some phlegm that does have some color to it. She is sort of a weird gal. Yesterday when we went into the room for the consultation, Jasmine and I found her sitting in bed with her top off. She was completely naked from the waist up and it did not really seem to bother her. Anyway, the patient is doing a bit better today. Currently temperature is 98.1 although T-max is 100.2. Heart rate 80, respiratory rate 18, blood pressure 100/64, mean 76, room air 94%. Appears in no acute distress. HEENT: Grossly unremarkable. Neck supple. No neck vein distention. No adenopathy or thyromegaly. Cardiovascular examination reveals regular rhythm rate. Heart rate 80. S1, S2 normal. Lungs reveal coarse rhonchi. Some expiratory wheezes. No crackles. She does not take deep breaths. Abdomen is soft. Extremities are intact. Skin without rash. Laboratory data was reviewed. White count is down from 20.6 to 12.5, hemoglobin 8.3, hematocrit 28.2, platelet count 308,000. Sodium, potassium, chloride, CO2 all normal. Anion gap normal, BUN and creatinine normal. The rest of her comprehensive metabolic profile was negative. Stool was positive for occult blood. Drug screen was positive for benzodiazepine. Hepatitis serology was negative. C. diff was negative. Her chest x-ray done compared to the x-ray done on 05/26 shows diffuse bilaterally patchy airspace disease although aeration is improved slightly. Right-sided effusion may be a bit worse. Microbiology including blood, stool and urine are all negative at this point. Medications are reviewed. She is on updrafts and Levaquin. ASSESSMENT: 1. Bilateral pneumonia, clinically and radiographically somewhat improved. 2. History of asthma/chronic obstructive pulmonary disease, not particularly active at this time. 3. Deep venous thrombosis. 4. Gastroesophageal reflux disease. 5. History of gastrointestinal bleed. 6. Previous history of pancreatitis. 7. Prior history of pneumonia. 8. Seizure disorder. 9. History of syncope. 10. Migraine cephalgia. 11. History of cirrhosis. 12. Diverticular disease. 13. History of previous MRSA infection secondary to brown recluse spider bite. PLAN: The patient is doing reasonably well. Will continue to follow. Very weird affect. Nonetheless, she is on good antibiotics and updrafts. Will continue to follow. Prognosis is guarded. MTDD
== END 2017-05-28 19:29 | disposition left against medical advice (07) | DRG 190 ==
LOC: EC 22:08 → 5MS5E 05-27 01:06
PROVIDERS: ADMIT Internal Medicine; ATTEND Internal Medicine
DX: J44.0 Chronic obstructive pulmonary disease with (acute) lower respiratory infection (principal); K27.4 Chronic or unspecified peptic ulcer, site unspecified, with hemorrhage; J18.9 Pneumonia, unspecified organism; K74.60 Unspecified cirrhosis of liver; F17.200 Nicotine dependence, unspecified, uncomplicated; D50.9 Iron deficiency anemia, unspecified; E66.9 Obesity, unspecified; D72.829 Elevated white blood cell count, unspecified; K21.9 Gastro-esophageal reflux disease without esophagitis; K57.90 Diverticulosis of intestine, part unspecified, without perforation or abscess without bleeding; G40.909 Epilepsy, unspecified, not intractable, without status epilepticus; R00.0 Tachycardia, unspecified; M19.90 Unspecified osteoarthritis, unspecified site; K44.9 Diaphragmatic hernia without obstruction or gangrene; M54.9 Dorsalgia, unspecified; G89.29 Other chronic pain; R50.9 Fever, unspecified; R01.1 Cardiac murmur, unspecified; G43.909 Migraine, unspecified, not intractable, without status migrainosus; F43.10 Post-traumatic stress disorder, unspecified; F41.0 Panic disorder [episodic paroxysmal anxiety]; F31.9 Bipolar disorder, unspecified; F41.9 Anxiety disorder, unspecified; Z86.14 Personal history of Methicillin resistant Staphylococcus aureus infection; Z86.73 Personal history of transient ischemic attack (TIA), and cerebral infarction without residual deficits; Z79.899 Other long term (current) drug therapy; Z86.718 Personal history of other venous thrombosis and embolism; Z80.7 Family history of other malignant neoplasms of lymphoid, hematopoietic and related tissues; Z82.49 Family history of ischemic heart disease and other diseases of the circulatory system; Z87.442 Personal history of urinary calculi; Z53.21 Procedure and treatment not carried out due to patient leaving prior to being seen by health care provider; Z90.710 Acquired absence of both cervix and uterus; Z90.49 Acquired absence of other specified parts of digestive tract; Z98.51 Tubal ligation status; Z86.79 Personal history of other diseases of the circulatory system; Z87.19 Personal history of other diseases of the digestive system; Z86.19 Personal history of other infectious and parasitic diseases; Z87.01 Personal history of pneumonia (recurrent); Z88.5 Allergy status to narcotic agent; Z88.0 Allergy status to penicillin; Z88.8 Allergy status to other drugs, medicaments and biological substances; Z88.1 Allergy status to other antibiotic agents; Z91.030 Bee allergy status; Z91.041 Radiographic dye allergy status; Z71.51 Drug abuse counseling and surveillance of drug abuser; Z84.1 Family history of disorders of kidney and ureter; Z79.891 Long term (current) use of opiate analgesic; Z79.51 Long term (current) use of inhaled steroids; Z79.52 Long term (current) use of systemic steroids
CPT/HCPCS: 36415; 71020; 74000; 80053; 80074; 80306; 81001; 82150; 82272; 82550; 82553; 83605; 83690; 83880; 84484; 85025; 85610; 85730; 86738; 87040; 87045; 87046; 87070; 87177; 87205; 87207; 87209; 87324; 87390; 89055; 94640; 94760; 96365; 96375; 99284

== ENCOUNTER 2018-08-06 00:01 | Observation (INO) | payer OTHER ==
[2018-08-06] MEDS ORDERED: SODIUM CHLORIDE 0.9% 1,000 ML IV STA ×2 (00:07)
[2018-08-06] MEDS ORDERED: ONDANSETRON ODT 8 MG TAB.RAPDIS PO STA (00:07)
[2018-08-06 00:48] LABS: Anisocytosis Slight; Basophils % (A) 0 %; Eosinophils # (A) 0.1 k/uL (0-0.7); Eosinophils % (A) 1 %; HCT 31.5 % (34.0-46.0); HGB 8.9 gm/dL (11.4-16.0); Hypochromasia Marked; Lymphocytes # (A) 1.5 k/uL (1.0-4.8); Lymphocytes % (A) 14 %; MCH 20.4 pg (25.0-35.0); MCHC 28.1 g/dL (31.0-37.0); MCV 72.7 fL (80.0-100.0); Mean Platelet Volume 7.2; Microcytosis Moderate; Monocytes # (A) 0.5 k/uL (0-1.0); Monocytes % (A) 5 %; Neutrophils # (A) 8.1 k/uL (1.3-7.7); Neutrophils % (A) 78 %; Platelet Count 322 k/uL (150-450); Poikilocytosis Slight; RBC 4.34 m/uL (3.80-5.40); RDW 18.7 % (11.5-15.5); WBC 10.4 k/uL (3.8-10.6)
[2018-08-06 01:03] LABS: ALT 122 U/L (9-52); AST 61 U/L (14-36); Albumin 2.9 g/dL (3.5-5.0); Alkaline Phosphatase 264 U/L (38-126); Amylase 44 U/L (30-110); Anion Gap 7 mmol/L; Blood Urea Nitrogen 5 mg/dL (7-17); Carbon Dioxide 28 mmol/L (22-30); Chloride 102 mmol/L (98-107); Glucose 160 mg/dL (74-99); Lipase 258 U/L (23-300); Sodium 137 mmol/L (137-145); Total Bilirubin 0.3 mg/dL (0.2-1.3); Total Protein 5.4 g/dL (6.3-8.2)
--- NOTE | 2018-08-06 01:09 | ED ---
Abdominal Pain HPI - General Chief Complaint: Abdominal Pain Stated Complaint: ABD PAIN Time Seen by Provider: 08/06/18 00:07 Source: patient Mode of arrival: ambulatory Limitations: no limitations - History of Present Illness Initial Comments: Alisson is a 43-year-old female with a comp located past medical history who presents to the emergency department today for evaluation of nausea, vomiting and diarrhea for approximately 2 weeks duration. The patient states that she is recently been treated with oral antibiotics and steroids for pneumonia. She reports that in the past 2 weeks she's developed persistent nausea, daily episodes of vomiting and profound diarrhea. Patient reports that she is having 15-20 episodes of nonbloody diarrhea daily. She reports that diarrhea comes on so suddenly that she has difficulty making it to the bathroom. She reports that at this point she is wearing adult diapers due to the profound diarrhea. Patient reports mild abdominal cramping, no abdominal pain. Patient states that she has been taking her home medications including medication for acid reflux, 8 mg of Zofran every 8 hours and 4 pills of Imodium daily. Despite taking the she still continues to have these symptoms. She reports she has a history of a hiatal hernia and she does tend have some nausea and vomiting however this is worse than it ever been. Patient reports she's never had diarrhea that persisted this long. She has never had C. diff diarrhea. She has recently been on oral antibiotics and has been on IV antibiotics multiple times in the past few months due to significant pneumonias which of required ICU admission. Patient reports her COPD is at baseline, she's been wearing her oxygen at home. - Related Data Home Medications Medication Instructions Recorded Confirmed Tiotropium [place] [Spiriva] 1 cap INHALATION RT-DAILY 04/09/15 05/26/17 ALPRAZolam [Xanax] 1 mg PO TID 05/26/17 05/26/17 FLUoxetine HCL [PROzac] 60 mg PO HS 05/26/17 05/26/17 Furosemide [Lasix] 20 mg PO BID 05/26/17 05/26/17 Gabapentin [Neurontin] 800 mg PO QID 05/26/17 05/26/17 Pantoprazole Sodium [Protonix] 40 mg PO BID 05/26/17 05/26/17 hydrOXYzine PAMOATE 50 mg PO QID 05/26/17 05/26/17 predniSONE 10 mg PO DAILY 05/26/17 05/26/17 traMADol HCl [Ultram] 50 mg PO BID 05/26/17 05/26/17 Montelukast Sodium [Singulair] 10 mg PO HS 05/28/17 05/28/17 Allergies Allergy/AdvReac Type Severity Reaction Status Date / Time amoxicillin trihydrate Allergy Severe Anaphylaxis Verified 08/06/18 00:06 [From Augmentin] Iodinated Contrast- Oral and Allergy Severe Anaphylaxis Verified 08/06/18 00:06 IV Dye [Iodinated Contrast Media - IV Dye] ketorolac tromethamine Allergy Severe Rash/Hives Verified 08/06/18 00:06 [From Toradol] potassium clavulanate Allergy Severe Anaphylaxis Verified 08/06/18 00:06 [From Augmentin] prochlorperazine edisylate Allergy Severe Rash/Hives Verified 08/06/18 00:06 [From Compazine] prochlorperazine maleate Allergy Severe Rash/Hives Verified 08/06/18 00:06 [From Compazine] venom-honey bee Allergy Severe Anaphylaxis Verified 08/06/18 00:06 [bee venom (honey bee)] contrast Allergy Anaphylaxis Uncoded 08/06/18 00:06 Review of Systems ROS Statement: Those systems with pertinent positive or pertinent negative responses have been documented in the HPI. ROS Other: All systems not noted in ROS Statement are negative. Past Medical History Past Medical History: Asthma, COPD, Deep Vein Thrombosis (DVT), GERD/Reflux, GI Bleed, Osteoarthritis (OA), Pneumonia, Seizure Disorder, Syncope Additional Past Medical History / Comment(s): TACHYCARDIA, MURMUR, TIA(WHEN ), MIGRAINE, PSORIASES, DIVERTICULITIS, pancreatitis, 2009 BIT BY JUNIE RESTREPO ENDED UP WITH A WOUND THAT WAS POSITIVE FOR MRSA), KIDNEY STONES. BORN WITH SMALL ESOPHAGUS History of Any Multi-Drug Resistant Organisms: MRSA Date of last positivie culture/infection: 2008 MDRO Source:: WOUND Past Surgical History: Section, Cholecystectomy, Tubal Ligation Additional Past Surgical History / Comment(s): X3 C- SECTIONS Additional Past Anesthesia/Blood Transfusion Reaction / Comment(s): TAKES EXTRA TO KNOCK HER OUT. Past Psychological History: Anxiety, Bipolar, Depression, Panic Disorder, PTSD Smoking Status: Current every day smoker Past Alcohol Use History: None Reported Past Drug Use History: None Reported - Past Family History Father Family Medical History: Coronary Artery Disease (CAD), Renal Disease Additional Family Medical History / Comment(s): QUAD CABG Mother Family Medical History: Cancer Additional Family Medical History / Comment(s): NON HODGKINS LYMPHOMA General Exam - General Exam Comments Initial Comments: Physical Exam GENERAL: Chronically ill-appearing, appears older than stated age, obese female in no acute distress HENT: Normocephalic, Atraumatic. Shearer facies EYES: PERRL, EOMI PULMONARY: Mild expiratory wheezing CARDIOVASCULAR: Tachycardic regular ABDOMEN: Soft and nontender with normal bowel sounds. SKIN: Skin is clear with no lesions or rashes and otherwise unremarkable. : Deferred NEUROLOGIC: Patient is alert and oriented x3. Moving all extremities spontaneously MUSCULOSKELETAL: Normal extremities with adequate strength and full range of motion. No lower extremity swelling or edema. No calf tenderness. PSYCHIATRIC: Normal psychiatric evaluation. Limitations: no limitations Limitations: no limitations Course Vital Signs 08/06/18 08/06/18 08/06/18 00:04 01:00 01:30 Temperature 98 F Pulse Rate 111 H 94 90 Respiratory 20 18 20 Rate Blood Pressure 126/66 112/50 121/66 O2 Sat by Pulse 98 94 L 91 L Oximetry 08/06/18 08/06/18 08/06/18 02:00 02:30 03:00 Temperature Pulse Rate 89 84 90 Respiratory 16 16 18 Rate Blood Pressure 109/77 102/77 117/78 O2 Sat by Pulse 92 L 92 L 93 L Oximetry 08/06/18 08/06/18 08/06/18 03:30 04:00 05:00 Temperature 98 F Pulse Rate 92 91 89 Respiratory 18 18 18 Rate Blood Pressure 120/77 110/63 116/63 O2 Sat by Pulse 93 L 93 L 93 L Oximetry Medical Decision Making - Medical Decision Making The patient was seen and evaluated, history is obtained from the patient and review of medical record Patient with a history of chronic steroid use, recurrent antibiotic, known hiatal hernia, presenting with 2 weeks of profound diarrhea, occasional nausea and vomiting. Labs and imaging were ordered There is concern for C. diff diarrhea as the patient has been on multiple antibiotics in the past few months Labs with multiple abnormalities, primarily at the patient's baseline, mild elevation of transaminases, lactic acid mildly elevated, chronic anemia IV fluids infusing, Patient declined a rectal exam stating that she does not have any blood in her diarrhea Results were discussed with the patient, offered the patient options for discharge home with outpatient follow-up versus admission to the hospital. Considering the patient's profound diarrhea she doesn't feel comfortable being discharged. C. diff tests were ordered, patient did not provide a sample in the emergency department. Patient was admitted for diarrhea with concern for C. diff, lactic acidosis, dehydration - Lab Data Result diagrams: 08/06/18 00:33 08/06/18 00:33 Lab Results 08/06/18 08/06/18 08/06/18 Range/Units 00:33 00:33 00:33 WBC 10.4 (3.8-10.6) k/uL RBC 4.34 (3.80-5.40) m/uL Hgb 8.9 L (11.4-16.0) gm/dL Hct 31.5 L (34.0-46.0) % MCV 72.7 L (80.0-100.0) fL MCH 20.4 L (25.0-35.0) pg MCHC 28.1 L (31.0-37.0) g/dL RDW 18.7 H (11.5-15.5) % Plt Count 322 (150-450) k/uL Neutrophils % 78 % Lymphocytes % 14 % Monocytes % 5 % Eosinophils % 1 % Basophils % 0 % Neutrophils # 8.1 H (1.3-7.7) k/uL Lymphocytes # 1.5 (1.0-4.8) k/uL Monocytes # 0.5 (0-1.0) k/uL Eosinophils # 0.1 (0-0.7) k/uL Basophils # 0.0 (0-0.2) k/uL Hypochromasia Marked Poikilocytosis Slight Anisocytosis Slight Microcytosis Moderate Sodium 137 (137-145) mmol/L Potassium 4.0 (3.5-5.1) mmol/L Chloride 102 (98-107) mmol/L Carbon Dioxide 28 (22-30) mmol/L Anion Gap 7 mmol/L BUN 5 L (7-17) mg/dL Creatinine 0.62 (0.52-1.04) mg/dL Est GFR (CKD-EPI)AfAm >90 (>60 ml/min/1.73 sqM) Est GFR (CKD-EPI)NonAf >90 (>60 ml/min/1.73 sqM) Glucose 160 H (74-99) mg/dL Lactic Ac Sepsis Rflx Plasma Lactic Acid Stiven 2.4 H* (0.7-2.0) mmol/L Calcium 8.0 L (8.4-10.2) mg/dL Total Bilirubin 0.3 (0.2-1.3) mg/dL AST 61 H (14-36) U/L ALT 122 H (9-52) U/L Alkaline Phosphatase 264 H (38-126) U/L Total Protein 5.4 L (6.3-8.2) g/dL Albumin 2.9 L (3.5-5.0) g/dL Amylase 44 (30-110) U/L Lipase 258 (23-300) U/L Hepatitis A IgM Ab 08/06/18 08/06/18 Range/Units 01:20 04:26 WBC (3.8-10.6) k/uL RBC (3.80-5.40) m/uL Hgb (11.4-16.0) gm/dL Hct (34.0-46.0) % MCV (80.0-100.0) fL MCH (25.0-35.0) pg MCHC (31.0-37.0) g/dL RDW (11.5-15.5) % Plt Count (150-450) k/uL Neutrophils % % Lymphocytes % % Monocytes % % Eosinophils % % Basophils % % Neutrophils # (1.3-7.7) k/uL Lymphocytes # (1.0-4.8) k/uL Monocytes # (0-1.0) k/uL Eosinophils # (0-0.7) k/uL Basophils # (0-0.2) k/uL Hypochromasia Poikilocytosis Anisocytosis Microcytosis Sodium (137-145) mmol/L Potassium (3.5-5.1) mmol/L Chloride (98-107) mmol/L Carbon Dioxide (22-30) mmol/L Anion Gap mmol/L BUN (7-17) mg/dL Creatinine (0.52-1.04) mg/dL Est GFR (CKD-EPI)AfAm (>60 ml/min/1.73 sqM) Est GFR (CKD-EPI)NonAf (>60 ml/min/1.73 sqM) Glucose (74-99) mg/dL Lactic Ac Sepsis Rflx Y Plasma Lactic Acid Stiven (0.7-2.0) mmol/L Calcium (8.4-10.2) mg/dL Total Bilirubin (0.2-1.3) mg/dL AST (14-36) U/L ALT (9-52) U/L Alkaline Phosphatase (38-126) U/L Total Protein (6.3-8.2) g/dL Albumin (3.5-5.0) g/dL Amylase (30-110) U/L Lipase (23-300) U/L Hepatitis A IgM Ab NEGATIVE Disposition Clinical Impression: Diarrhea, At risk for Clostridium difficile infection, Chronic anemia, Lactic acidosis, COPD (chronic obstructive pulmonary disease) Disposition: ADMITTED IP TO THIS HOSP Condition: Stable Referrals: Nonstaff,Physician [Primary Care Provider] - 1-2 days
--- NOTE | 2018-08-06 01:12 | XR ---
EXAMINATION TYPE: XR KUB DATE OF EXAM: 08/06/2018 COMPARISON: 05/26/2017 HISTORY: Nausea and vomiting TECHNIQUE: 2 views upright FINDINGS: Bowel gas pattern is normal. There is no sign of intestinal obstruction or pneumoperitoneum . Fecal pattern is normal. There is no evidence of a mass. Lung bases are clear. There are no patholo gic calcifications over the kidneys. IMPRESSION: Nonacute abdomen. No change.
[2018-08-06] MEDS ORDERED: HYDROcodone/APAP 10-325MG 1 EACH TAB PO ONE (04:07)
[2018-08-06] MEDS ORDERED: DICYCLOMINE 10 MG CAP PO STA (04:07)
[2018-08-06] MEDS ORDERED: NALOXONE 0.4 MG/ML 1 ML VIAL IV PRN (04:08)
[2018-08-06] MEDS: SODIUM CHLORIDE 0.9% 1,000 ML IV SCH ×2 (04:41→13:16)
[2018-08-06 05:11] LABS: Hepatitis A Antibody IgM NEGATIVE
[2018-08-06 06:05] VITALS: BMI 29.8
[2018-08-06] MEDS: IPRATROPIUM 0.5 MG/2.5 ML NEBU INHALATION SCH ×2 (08:45→13:05)
[2018-08-06] MEDS ORDERED: FUROSEMIDE 20 MG TAB PO SCH (09:00)
[2018-08-06] MEDS ORDERED: FAMOTIDINE 20 MG TAB PO SCH (09:00)
[2018-08-06] MEDS: GABAPENTIN 400 MG CAP PO SCH ×2 (09:23→13:17)
[2018-08-06 12:37] LABS: Hepatitis B Core IgM Non-Reactive (Non-Reactive)
[2018-08-06 12:40] LABS: Appearance,Urine Clear (Clear); Bilirubin,Urine Negative (Negative); Blood,Urine Negative (Negative); Color,Urine Light Yellow; Glucose,Urine (UA) Negative (Negative); Ketones,Urine Negative (Negative); Leukocyte Esterase,Urine Negative (Negative); Nitrite,Urine Negative (Negative); PH, Urine 6.5 (5.0-8.0); Protein,Urine Negative (Negative); Specific Gravity,Urine 1.007 (1.001-1.035); Urobilinogen,Urine <2.0 mg/dL (<2.0)
[2018-08-06 12:41] VITALS: BP 119/64; PULSE 93; RESP 16; TEMP 98.8
[2018-08-06] MEDS ORDERED: NYSTATIN 100,000UNIT/GM CREAM 30 GM TUBE TOPICAL PRN (12:43)
[2018-08-06] MEDS ORDERED: FERROUS SULFATE 325 MG TAB PO SCH (12:45)
[2018-08-06] MEDS ORDERED: PANTOPRAZOLE 40 MG TABLET PO SCH (17:30)
[2018-08-06] MEDS ORDERED: cloNIDine HCL 0.1 MG TAB PO SCH (21:00)
[2018-08-06] MEDS ORDERED: POTASSIUM CHLORIDE ER 10 MEQ TAB.ER.PRT PO SCH (21:00)
[2018-08-06] MEDS ORDERED: FLUoxetine HCL 20 MG CAP PO SCH (21:00)
[2018-08-06] MEDS ORDERED: busPIRone HCl 10 MG TAB PO SCH (21:00)
[2018-08-06] MEDS ORDERED: MONTELUKAST 10 MG TAB PO SCH (21:00)
[2018-08-07] MEDS ORDERED: MAGNESIUM OXIDE 400 MG TAB PO SCH (09:00)
--- NOTE | 2018-08-07 11:37 | P.HPIM ---
History of Present Illness H&P Date: 08/06/18 Ms. Villalpando is a 43-year-old female with a past medical history of asthma, COPD, DVT, GERD, osteoarthritis, seizure disorder, migraine headaches coming to the hospital with a chief complaint of nausea vomiting and diarrhea that have been ongoing for the past 2 weeks. Patient states that she was having 15-20 episodes of nonbloody diarrhea for the past couple of weeks associated with nausea and she has been throwing up a few times. Patient states that she was taking antibiotics in the past few weeks on and off for pneumonia. Patient denies having any fevers chills or riders. No chest pain or palpitations. No dysuria or hematuria. Patient states that her bottom has been sore because of ongoing diarrhea. In the emergency department the patient had blood work done showing lactic acidosis and so admitted for IV fluids and C. difficile rule out. Patient received IV fluids overnight and states she is been feeling better this morning. Patient has chicken burger on the tray table. The nursing staff requested that she would be started on clear fluids and then advance the diet as tolerated but she refused to do it. As per the nursing staff report the patient was somnolent until this morning as she was given IV pain medications in the ED. When I want to see her this morning patient states that she is in a lot of pain and wants to be restarted on all her pain medications. On reviewing her medication list -she is on Suboxone and Klonopin. Discussed with the patient's I cannot give her Suboxone as with do not have it available here. She demands that she be started on Dilaudid and morphine as those are the only medications that work for her pain. Patient does not want to discuss about other pain medication options. And she insisted that she would leave AMA if not give her morphine and Dilaudid. Review of systems-as mentioned in the HPI. Past Medical History Past Medical History: Asthma, COPD, Deep Vein Thrombosis (DVT), GERD/Reflux, GI Bleed, Osteoarthritis (OA), Pneumonia, Seizure Disorder, Syncope Additional Past Medical History / Comment(s): TACHYCARDIA, MURMUR, TIA(WHEN ), MIGRAINE, PSORIASES, DIVERTICULITIS, pancreatitis, 2009 BIT BY JUNIE OLIVOSE ENDED UP WITH A WOUND THAT WAS POSITIVE FOR MRSA), KIDNEY STONES. BORN WITH SMALL ESOPHAGUS History of Any Multi-Drug Resistant Organisms: MRSA Date of last positivie culture/infection: 2008 MDRO Source:: WOUND Past Surgical History: Section, Cholecystectomy, Tubal Ligation Additional Past Surgical History / Comment(s): X3 C- SECTIONS Additional Past Anesthesia/Blood Transfusion Reaction / Comment(s): TAKES EXTRA TO KNOCK HER OUT. Past Psychological History: Anxiety, Bipolar, Depression, Panic Disorder, PTSD Smoking Status: Current every day smoker Past Alcohol Use History: None Reported Past Drug Use History: None Reported - Past Family History Father Family Medical History: Coronary Artery Disease (CAD), Renal Disease Additional Family Medical History / Comment(s): QUAD CABG Mother Family Medical History: Cancer Additional Family Medical History / Comment(s): NON HODGKINS LYMPHOMA Medications and Allergies Home Medications Medication Instructions Recorded Confirmed Type ALPRAZolam [Xanax] 1 mg PO QID 05/26/17 08/06/18 History FLUoxetine HCL [PROzac] 60 mg PO HS 05/26/17 08/06/18 History Furosemide [Lasix] 20 mg PO BID 05/26/17 08/06/18 History Gabapentin [Neurontin] 800 mg PO QID 05/26/17 08/06/18 History Pantoprazole Sodium [Protonix] 40 mg PO BID 05/26/17 08/06/18 History hydrOXYzine PAMOATE 50 mg PO QID 05/26/17 08/06/18 History Montelukast Sodium [Singulair] 10 mg PO HS 05/28/17 08/06/18 History Albuterol Nebulized [Ventolin 2.5 mg INHALATION RT-Q4H PRN 08/06/18 08/06/18 History Nebulized] Beclomethasone Dipropionate [Qvar 2 puff INHALATION RT-BID 08/06/18 08/06/18 History 80 mcg] Buprenorphine HCl/Naloxone HCl 1 film SL TID 08/06/18 08/06/18 History [Suboxone 8 mg-2 mg Sl Film] Colchicine 0.6 mg PO DAILY PRN 08/06/18 08/06/18 History EPINEPHrine (Auto Inject) [Epipen] 0.3 mg IM ONCE PRN 08/06/18 08/06/18 History Ferrous Sulfate [Feosol] 325 mg PO MOWEFR 08/06/18 08/06/18 History Fluticasone Nasal [place] [Flonase 1 spr EA NOSTRIL DAILY 08/06/18 08/06/18 History Nasal [place]] Ketoconazole 2% Shampoo [Nizoral] 1 applic TOPICAL DAILY 08/06/18 08/06/18 History Magnesium Gluconate [Magonate] 500 mg PO DAILY 08/06/18 08/06/18 History Mupirocin [Mupirocin 2%] 1 applic TOPICAL BID PRN 08/06/18 08/06/18 History Nystatin 1 applic TOPICAL TID PRN 08/06/18 08/06/18 History Ondansetron Odt [Zofran Odt] 4 mg PO Q8H PRN 08/06/18 08/06/18 History Potassium Chloride ER [K-Dur 10] 10 meq PO BID 08/06/18 08/06/18 History Triamcinolone 0.025% Cream 1 applic TOPICAL TID PRN 08/06/18 08/06/18 History [Kenalog 0.025% Cream] Umeclidinium [place] [Incruse 1 puff INHALATION RT-DAILY 08/06/18 08/06/18 History Ellipta] busPIRone HCL 30 mg PO BID 08/06/18 08/06/18 History cloNIDine HCL [Catapres] 0.1 mg PO BID 08/06/18 08/06/18 History Allergies Allergy/AdvReac Type Severity Reaction Status Date / Time amoxicillin trihydrate Allergy Severe Anaphylaxis Verified 08/06/18 10:49 [From Augmentin] Iodinated Contrast- Oral and Allergy Severe Anaphylaxis Verified 08/06/18 10:49 IV Dye [Iodinated Contrast Media - IV Dye] ketorolac tromethamine Allergy Severe Rash/Hives Verified 08/06/18 10:49 [From Toradol] potassium clavulanate Allergy Severe Anaphylaxis Verified 08/06/18 10:49 [From Augmentin] prochlorperazine edisylate Allergy Severe Rash/Hives Verified 08/06/18 10:49 [From Compazine] prochlorperazine maleate Allergy Severe Rash/Hives Verified 08/06/18 10:49 [From Compazine] venom-honey bee Allergy Severe Anaphylaxis Verified 08/06/18 10:49 [bee venom (honey bee)] contrast Allergy Anaphylaxis Uncoded 08/06/18 00:06 Physical Exam Vitals: Vital Signs Temp Pulse Pulse Resp BP BP Pulse Ox 08/06/18 12:10 98.8 F 93 16 119/64 08/06/18 08:54 84 08/06/18 08:47 88 08/06/18 08:30 98 F 97 20 117/79 93 L 08/06/18 05:52 98.8 F 95 18 118/60 94 L 08/06/18 05:00 98 F 89 18 116/63 93 L 08/06/18 04:00 91 18 110/63 93 L 08/06/18 03:30 92 18 120/77 93 L 08/06/18 03:00 90 18 117/78 93 L 08/06/18 02:30 84 16 102/77 92 L 08/06/18 02:00 89 16 109/77 92 L 08/06/18 01:30 90 20 121/66 91 L 08/06/18 01:00 94 18 112/50 94 L 08/06/18 00:04 98 F 111 H 20 126/66 98 Intake and Output 08/05/18 08/06/18 08/06/18 22:59 06:59 14:59 Output Total 700 Balance -700 Output: Urine 700 Other: Voiding Method Toilet # Voids 1 Weight 81.4 kg General examination patient is alert awake oriented x3 sitting comfortably in the bed HEENT-no pallor no icterus Auyndinghpjerr-H2-D4 heard Respiratory-diminished breath sounds bilaterally at the lower lung bases GI-positive epigastric tenderness Extremities-no edema Results CBC & Chem 7: 08/06/18 00:33 08/06/18 00:33 Labs: Abnormal Lab Results - Last 24 Hours (Table) 08/06/18 08/06/18 08/06/18 Range/Units 00:33 00:33 00:33 Hgb 8.9 L (11.4-16.0) gm/dL Hct 31.5 L (34.0-46.0) % MCV 72.7 L (80.0-100.0) fL MCH 20.4 L (25.0-35.0) pg MCHC 28.1 L (31.0-37.0) g/dL RDW 18.7 H (11.5-15.5) % Neutrophils # 8.1 H (1.3-7.7) k/uL BUN 5 L (7-17) mg/dL Glucose 160 H (74-99) mg/dL Plasma Lactic Acid Stiven 2.4 H* (0.7-2.0) mmol/L Calcium 8.0 L (8.4-10.2) mg/dL AST 61 H (14-36) U/L ALT 122 H (9-52) U/L Alkaline Phosphatase 264 H (38-126) U/L Total Protein 5.4 L (6.3-8.2) g/dL Albumin 2.9 L (3.5-5.0) g/dL Thrombosis Risk Factor Assmnt - Choose All That Apply Each Factor Represents 1 point: Abnormal pulmonary function (COPD), Age 41-60 years, Obesity (BMI >25), Sepsis (< 1month) Thrombosis Risk Factor Assessment Total Risk Factor Score: 4 Thrombosis Risk Factor Assessment Level: Moderate Risk Assessment and Plan Assessment: ASSESSMENT Intractable nausea and vomiting and diarrhea Lactic acidosis Elevated AST/ALT History of COPD History of DVT History of seizure disorder GERD Migraine headaches Chronic osteoarthritis Chronic low back pain Plan: Patient was given IV fluids in the ED and a repeat lactic acid has been trending down. Patient did not have a bowel movement since the admission. C. difficile still pending. Patient demands IV Dilaudid and morphine and states that she would leave A if she was not given these medications. Patient has history of pain medication abuse. Discussed in detail with her this would not be safe for her as she was very somnolent this morning and at risk for aspiration. Patient was very angry and upset and said that she would leave the hospital AGAINST MEDICAL ADVICE..
--- NOTE | 2018-08-07 11:40 | P.DS ---
Providers Date of admission: 08/06/18 04:12 Expected date of discharge: 08/06/18 Attending physician: Raoul Mon Primary care physician: Physician Nonsta Hospital Course: Ms. Villalpando is a 43-year-old female with a past medical history of asthma, COPD, DVT, GERD, osteoarthritis, seizure disorder, migraine headaches coming to the hospital with a chief complaint of nausea vomiting and diarrhea that have been ongoing for the past 2 weeks. Patient states that she was having 15-20 episodes of nonbloody diarrhea for the past couple of weeks associated with nausea and she has been throwing up a few times. Patient states that she was taking antibiotics in the past few weeks on and off for pneumonia. Patient denies having any fevers chills or riders. No chest pain or palpitations. No dysuria or hematuria. Patient states that her bottom has been sore because of ongoing diarrhea. In the emergency department the patient had blood work done showing lactic acidosis and so admitted for IV fluids and C. difficile rule out. Patient received IV fluids overnight and states she is been feeling better this morning. Patient has chicken burger on the tray table. The nursing staff requested that she would be started on clear fluids and then advance the diet as tolerated but she refused to do it. As per the nursing staff report the patient was somnolent until this morning as she was given IV pain medications in the ED. When I want to see her this morning patient states that she is in a lot of pain and wants to be restarted on all her pain medications. On reviewing her medication list -she is on Suboxone and Klonopin. Discussed with the patient's I cannot give her Suboxone as with do not have it available here. She demands that she be started on Dilaudid and morphine as those are the only medications that work for her pain. Patient does not want to discuss about other pain medication options. And she insisted that she would leave AMA if not give her morphine and Dilaudid. Discharge Diagnosis Intractable nausea and vomiting and diarrhea Lactic acidosis Elevated AST/ALT History of COPD History of DVT History of seizure disorder GERD Migraine headaches Chronic osteoarthritis Chronic low back pain Plan: Patient was given IV fluids in the ED and a repeat lactic acid has been trending down. Patient did not have a bowel movement since the admission. C. difficile still pending. Patient demands IV Dilaudid and morphine and states that she would leave AMA if she was not given these medications. Patient has history of pain medication abuse. Discussed in detail with her this would not be safe for her as she was very somnolent this morning and at risk for aspiration. Patient was very angry and upset and said that she would leave the hospital AGAINST MEDICAL ADVICE.. Later was called by the staff that she left the hospital AMA. Patient Condition at Discharge: Stable Plan - Discharge Summary New Discharge Prescriptions: No Action hydrOXYzine PAMOATE 50 mg PO QID Pantoprazole Sodium [Protonix] 40 mg PO BID Gabapentin [Neurontin] 800 mg PO QID Furosemide [Lasix] 20 mg PO BID FLUoxetine HCL [PROzac] 60 mg PO HS ALPRAZolam [Xanax] 1 mg PO QID Montelukast Sodium [Singulair] 10 mg PO HS Buprenorphine HCl/Naloxone HCl [Suboxone 8 mg-2 mg Sl Film] 1 film SL TID Beclomethasone Dipropionate [Qvar 80 mcg] 2 puff INHALATION RT-BID Potassium Chloride ER [K-Dur 10] 10 meq PO BID Ondansetron Odt [Zofran Odt] 4 mg PO Q8H PRN PRN Reason: Nausea Nystatin 1 applic TOPICAL TID PRN PRN Reason: Rash Mupirocin [Mupirocin 2%] 1 applic TOPICAL BID PRN PRN Reason: Rash Magnesium Gluconate [Magonate] 500 mg PO DAILY Ketoconazole 2% Shampoo [Nizoral] 1 applic TOPICAL DAILY Umeclidinium [place] [Incruse Ellipta] 1 puff INHALATION RT-DAILY Fluticasone Nasal [place] [Flonase Nasal [place]] 1 spr EA NOSTRIL DAILY Ferrous Sulfate [Feosol] 325 mg PO MOWEFR EPINEPHrine (Auto Inject) [Epipen] 0.3 mg IM ONCE PRN PRN Reason: Anaphylaxis cloNIDine HCL [Catapres] 0.1 mg PO BID Colchicine 0.6 mg PO DAILY PRN PRN Reason: GOUT FLARE UP busPIRone HCL 30 mg PO BID Albuterol Nebulized [Ventolin Nebulized] 2.5 mg INHALATION RT-Q4H PRN PRN Reason: Shortness Of Breath Triamcinolone 0.025% Cream [Kenalog 0.025% Cream] 1 applic TOPICAL TID PRN PRN Reason: Rash Discharge Medication List ALPRAZolam [Xanax] 1 mg PO QID 05/26/17 [History] FLUoxetine HCL [PROzac] 60 mg PO HS 05/26/17 [History] Furosemide [Lasix] 20 mg PO BID 05/26/17 [History] Gabapentin [Neurontin] 800 mg PO QID 05/26/17 [History] Pantoprazole Sodium [Protonix] 40 mg PO BID 05/26/17 [History] hydrOXYzine PAMOATE 50 mg PO QID 05/26/17 [History] Montelukast Sodium [Singulair] 10 mg PO HS 05/28/17 [History] Albuterol Nebulized [Ventolin Nebulized] 2.5 mg INHALATION RT-Q4H PRN 08/06/18 [ History] Beclomethasone Dipropionate [Qvar 80 mcg] 2 puff INHALATION RT-BID 08/06/18 [ History] Buprenorphine HCl/Naloxone HCl [Suboxone 8 mg-2 mg Sl Film] 1 film SL TID [History] Colchicine 0.6 mg PO DAILY PRN 08/06/18 [History] EPINEPHrine (Auto Inject) [Epipen] 0.3 mg IM ONCE PRN 08/06/18 [History] Ferrous Sulfate [Feosol] 325 mg PO MOWEFR 08/06/18 [History] Fluticasone Nasal [place] [Flonase Nasal [place]] 1 spr EA NOSTRIL DAILY 08/06/18 [ History] Ketoconazole 2% Shampoo [Nizoral] 1 applic TOPICAL DAILY 08/06/18 [History] Magnesium Gluconate [Magonate] 500 mg PO DAILY 08/06/18 [History] Mupirocin [Mupirocin 2%] 1 applic TOPICAL BID PRN 08/06/18 [History] Nystatin 1 applic TOPICAL TID PRN 08/06/18 [History] Ondansetron Odt [Zofran Odt] 4 mg PO Q8H PRN 08/06/18 [History] Potassium Chloride ER [K-Dur 10] 10 meq PO BID 08/06/18 [History] Triamcinolone 0.025% Cream [Kenalog 0.025% Cream] 1 applic TOPICAL TID PRN 08/06 [History] Umeclidinium [place] [Incruse Ellipta] 1 puff INHALATION RT-DAILY 08/06/18 [ History] busPIRone HCL 30 mg PO BID 08/06/18 [History] cloNIDine HCL [Catapres] 0.1 mg PO BID 08/06/18 [History] Follow up Appointment(s)/Referral(s): Nonstaff,Physician [Primary Care Provider] - 1-2 days Discharge Disposition: Left Against Medical Advice
== END 2018-08-06 13:25 | disposition left against medical advice (07) ==
LOC: EC 00:01 → 6PED 04:12
PROVIDERS: ADMIT Hospitalist; ATTEND Hospitalist
DX: R19.7 Diarrhea, unspecified (principal); J44.9 Chronic obstructive pulmonary disease, unspecified; Z86.718 Personal history of other venous thrombosis and embolism; K21.9 Gastro-esophageal reflux disease without esophagitis; M19.90 Unspecified osteoarthritis, unspecified site; E87.2 Acidosis; R11.2 Nausea with vomiting, unspecified; M54.5 Low back pain; G89.29 Other chronic pain; F31.9 Bipolar disorder, unspecified; F41.9 Anxiety disorder, unspecified; F17.200 Nicotine dependence, unspecified, uncomplicated; G40.909 Epilepsy, unspecified, not intractable, without status epilepticus; D64.9 Anemia, unspecified; R79.89 Other specified abnormal findings of blood chemistry; G43.909 Migraine, unspecified, not intractable, without status migrainosus; Z87.01 Personal history of pneumonia (recurrent); Z86.14 Personal history of Methicillin resistant Staphylococcus aureus infection; Z82.49 Family history of ischemic heart disease and other diseases of the circulatory system; Z88.5 Allergy status to narcotic agent; Z88.0 Allergy status to penicillin; Z88.8 Allergy status to other drugs, medicaments and biological substances; Z91.030 Bee allergy status; Z91.041 Radiographic dye allergy status; Z90.49 Acquired absence of other specified parts of digestive tract; Z79.899 Other long term (current) drug therapy; Z79.51 Long term (current) use of inhaled steroids
CPT/HCPCS: 96360; 96361; 99285; 36415; 94640; 80053; 80074; 82150; 83605; 83690; 85025; 81003; 81025; 74018; G0378